=== PATIENT | female | born 1990 | race Caucasian/White ===

== ENCOUNTER → 2018-10-21 13:41 | Outpatient (CLI) | payer SELFPAY ==
[2018-10-21 17:14] LABS: Chlamydia Trachomatis by PCR Negative (Negative); Neisserai gonorrhoeae by PCR Negative (Negative); Probe Check PASS; Sample Adequacy Control PASS; Specimen Processing Control PASS
[2018-10-26 11:31] LABS: HPV Reflexed? NOT INDICATED
--- OUTSIDE RECORDS SUMMARY | 2019-01-25 04:12 | XMS RPT_ITS ---
:1990 Author Organization OHIP Care Team Providers Name Role Phone Donald Ward Attending Unavailable Seals, Donald Attending Unavailable PROBLEMS PROBLEMS DATE TYPE CONDITION / CODE ATTENDING STATUS SOURCE 11/03/2018 Unknown Z34.82 - Encounter Donald Ward Active Bren for supervision of Community other normal Hospital , second Repository trimester / Z34.82(ICD-10) 10/21/2018 Unknown Z11.3 - Encounter SealDonald cai for screening for Community infections with a Hospital predominantly Repository sexual mode of transmission / Z11.3(ICD-10) 10/21/2018 Unknown Z12.4 - Encounter Donald Ward for screening for Community malignant neoplasm Hospital of cervix / Repository Z12.4(ICD-10) PROCEDURES PROCEDURES No Procedure Records FoundRESULTS RESULTS URINE DRUG SCREEN Collected: 11/03/2018 Status: F Source: BREN (MIR) 9:26 AM [facility] REPOSITORY Order Comment: List of Drugs Taken or Suspected? UNK TYPE CODE TESTS RESULT OUT OF RANGE REFERENCE UNITS LAB L505.0075 TO BE Normal CONFIRMED Result Comment: CONFIRMATORY TESTING FOR ALL POSITIVE URINE DRUG SCREEN RESULTS WILL ONLY BE SENT OUT UPON PHYSICIAN ORDER. VISTA Urine Drug Screen methods provide only preliminary analytical test results. A more specific alternate chemical method must be used in order to obtain a confirmed analytical result. Gas chromatography/mass spectrometery (GC/MS) is the preferred confirmatory method. Clinical consideration and professional judgement should be applied to any drug of abuse test result, particularly when preliminary positive results are used. URINE TCA TESTING MUST BE ORDERED SEPARATELY. USE TEST MNEMONIC: [facility] LAB L505.5005 VISTA UDS PH 7 Normal LAB L505.5015 <1000 ng/mL AMPHETAMINES Normal NEGATIVE LAB L505.5025 < 200 ng/mL BARBITIURATES Normal NEGATIVE LAB L505.5035 < 200 ng/mL BENZODIAZIPINE Normal NEGATIVE LAB L505.5045 < 300 ng/mL COCAINE Normal NEGATIVE LAB L505.5055 < 500 ng/mL ECSTACY Normal NEGATIVE LAB L505.5065 < 300 ng/mL METHADONE Normal NEGATIVE LAB L505.5075 < 300 ng/mL OPIATES Normal NEGATIVE LAB L505.5085 < 25 ng/mL PCP Normal NEGATIVE LAB L505.5095 < 50 ng/mL THC Normal NEGATIVE Performed By: #### L505.5000 #### [facility] [address] [place], [address] CBC W/DIFF, AUTOMATED Collected: 11/03/2018 Status: F Source: SILVER STAR 9:26 AM [facility] REPOSITORY TYPE CODE TESTS RESULT OUT OF RANGE REFERENCE UNITS LAB L100.1000 4.4-11.0 K/mm3 Normal WBC 9.0 LAB L100.1200 4.2-5.4 M/mm3 Low RBC 3.91 LAB L100.1300 12.0-15.0 g/dl Normal HGB 12.0 LAB L100.1400 37-47 % Low HCT 35.4 LAB L100.1500 81-99 fL Normal MCV 90.5 LAB L100.1600 27.0-32.0 pg Normal MCH 30.7 LAB L100.1700 32-36 g/gl Normal MCHC 33.9 LAB L100.1810 11.6-14.6 % Normal RDW CV 13.8 LAB L100.1820 35.1-43.9 fl High RDW SD 45.4 LAB L100.1900 150-450 K/mm3 Normal PLT 158 LAB L100.2000 6.2-12.0 fl Normal MPV 9.6 LAB L100.2100 47-70 % High NEUT% 79.4 LAB L100.2200 19-41 % Low LY% 12.6 LAB L100.2300 0-10 % Normal MONO% 6.8 LAB L100.2400 0-5 % Normal EO% 0.8 LAB L100.2500 0-1 % Normal BASO% 0.2 LAB L100.2550 0.0-0.9 % Normal IM GRAN % 0.200 Result Comment: IG% - Immature Granulocytes (promyelocytes, myelocytes and metamyelocytes) > 1% indicates that a LEFT SHIFT is Present. LAB L100.2620 2.0-7.7 X10 3/uL Normal Absolute Neut 7.1 LAB L100.2720 0.83-4.51 X10 3/ul Normal Absolute Lymph 1.13 Performed By: #### L100.0100 #### [facility] [address] [place], [place], [address] URINALYSIS, ROUTINE Collected: 11/03/2018 Status: F Source: BREN (DIPSTICK) 9:26 AM [facility] REPOSITORY Order Comment: How was Urine Obtained? Urine, Random TYPE CODE TESTS RESULT OUT OF RANGE REFERENCE UNITS LAB L400.3000 Yellow COLOR Normal Yellow LAB L400.3050 Clear Normal CLARITY Clear LAB L400.3200 Normal mg/dl Normal GLUCOSE, UR Normal LAB L400.3300 Negative mg/dL Normal BILIRUBIN URINE Negative LAB L400.3400 Negative mg/dl Normal KETONE UR Negative LAB L400.3465 1.002-1.030 Normal SP.GR. DIPSTX 1.015 LAB L400.3550 5.0 - 8.0 pH UR Normal 8.0 LAB L400.3600 Negative mg/dl PROT Normal DIPSTX Negative LAB L400.3700 Normal mg/dl Normal UROBILI Normal LAB L400.3750 Negative Normal NITRITE UR Negative LAB L400.3780 Negative /ul Normal OCCULT BLOOD-UR Negative LAB L400.3800 Negative /ul High LEUK 25 ESTERASE Performed By: #### L400.2010 #### [facility] [address] [place], [place], [address] THYROID STIM HORMONE Collected: 11/03/2018 Status: F Source: BREN (TSH) 9:26 AM [facility] REPOSITORY TYPE CODE TESTS RESULT OUT OF RANGE REFERENCE UNITS LAB L501.9520 0.358-3.74 uIU/mL Normal TSH 2.60 Performed By: #### L501.9520 #### [facility] [address] [place], [address] RUBELLA IGG Collected: 11/03/2018 Status: F Source: BREN 9:26 AM [facility] REPOSITORY TYPE CODE TESTS RESULT OUT OF RANGE REFERENCE UNITS LAB L509.4000 IU/mL Normal Rubella IgG 34.2 Result Comment: Antibody results Interpretation of Immune Status < 5 IU/ml Presumed Non-immune 5 - < 10 IU/ml Equivocal > or = 10 IU/ml Presumed Immune Performed By: #### L509.4000, L3890.6005 #### [facility] [address] [place], [place], [id number] HIV - WCH Collected: 11/03/2018 Status: F Source: SILVER STAR 9:26 AM [facility] REPOSITORY TYPE CODE TESTS RESULT OUT OF RANGE REFERENCE UNITS LAB L3890.6005 Nonreactive Normal HIV - WCH Non-Reactive Performed By: #### L509.3999, L3890.6005 #### [facility] [address] [place], [place], [id number] T AND S-NO Collected: 11/03/2018 Status: F Source: BREN CHARGE W/PNP 9:26 AM [facility] REPOSITORY Order Comment: Reason for Type AND Screen/Red Cells: Surgery? N TYPE CODE TESTS RESULT OUT OF RANGE REFERENCE UNITS LAB B10.0800 A Normal BLOOD POSITIVE TYPE GEL LAB B100.4050 Normal Ab SCREEN NEGATIVE GEL Performed By: #### B100.7550 #### [facility] [address] [place], [place], [id number] RPR Collected: 11/03/2018 Status: F Source: SILVER STAR 9:26 AM [facility] REPOSITORY TYPE CODE TESTS RESULT OUT OF REFERENCE UNITS RANGE LAB L700.5100 NONREACTIVE Normal RPR NONREACTIVE Performed By: #### L700.5100 #### [facility] [address] [place], [place], [address] HEPATITIS B SURFACE Collected: 11/03/2018 Status: F Source: BREN AG 9:26 AM [facility] REPOSITORY TYPE CODE TESTS RESULT OUT OF RANGE REFERENCE UNITS LAB L3100.0400 Negative Normal HB Negative SURF AG Result Comment: Performed at: [address] [id number] Hair Salon Manager: Maximiliano Ware PhD, Phone: [phone] Performed By: #### L3100.0390, L3100.0625 #### [facility] (refer to report for specific site) refer to report for address and phone number HEPATITIS C ANTIBODIES Collected: 11/03/2018 Status: F Source: SILVER STAR 9:26 AM [facility] REPOSITORY TYPE CODE TESTS RESULT OUT OF RANGE REFERENCE UNITS LAB L3100.0650 0.0-0.9 s/co ratio Normal HEP C AB <0.1 Result Comment: Negative: < 0.8 Indeterminate: 0.8 - 0.9 Positive: > 0.9 The CDC recommends that a positive HCV antibody result be followed up with a HCV Nucleic Acid Amplification test ([id number]). Performed By: #### L3100.0390, L3100.0625 #### [facility] (refer to report for specific site) refer to report for address and phone number CT/NG WCH BY PCR Collected: 10/21/2018 Status: F Source: SILVER STAR 10:30 AM [facility] REPOSITORY TYPE CODE TESTS RESULT OUT OF RANGE REFERENCE UNITS LAB L8200.2100 Negative Normal Chlam Negative Trac PCR LAB L8200.2200 Negative Normal NG by Negative PCR Performed By: #### L8200.1999 #### [facility] [address] [place], [address] PAP I-G W/RFX HRHPV Collected: 10/21/2018 Status: F Source: SILVER STAR 10:30 AM [facility] REPOSITORY Order Comment: CYTOLOGY INFORMATION: - CLINICAL INFORMATION: - DATE LMP/MENOPAUSE: 07/04/18 LMP - COLLECTION VIAL: Thin Prep Vial - COMMODITY TRADER SOURCE: CERVICAL/ENDOCERVICAL - COLLECTION TECHNIQUE: BRUSH/SPATULA Specimen Comment: [id number] Specimen Comment: Source.............Cervix;Endocervix Specimen Comment: LMP / Prev Treat...GHA=[id number] Specimen Comment: Other.............. Specimen Comment: No. of containers..01 ThinPrep Vial TYPE CODE TESTS RESULT OUT OF RANGE REFERENCE UNITS LAB L7400.0800 . Normal DIAGN Comment Result Comment: NEGATIVE FOR INTRAEPITHELIAL LESION AND MALIGNANCY. LAB L7400.0900 . Normal ADEQ Comment Result Comment: Satisfactory for evaluation. Endocervical and/or squamous metaplastic cells (endocervical component) are present. LAB L7400.1400 . Normal PERFORM Comment Result Comment: Natasha Pascual Horticulturalist LAB L7400.2575 . Normal TEST METHOD Comment Result Comment: This liquid based ThinPrep(R) pap test was screened with the use of an image guided system. LAB L7400.2600 . Normal . COMM LAB L7400.2700 . Normal PAPSMR Comment Result Comment: The Pap smear is a screening test designed to aid in the detection of premalignant and malignant conditions of the uterine cervix. It is not a diagnostic procedure and should not be used as the sole means of detecting cervical cancer. Both false-positive and false-negative reports do occur. LAB L7400.2800 . Normal HPV RFLX Comment Result Comment: The HPV DNA reflex criteria were not met with this specimen result therefore, no HPV testing was performed. Performed at: - [facility] [id number] Hair Salon Manager: Lorna James MD, Phone: [phone] Performed By: #### L7400.0350 #### [facility] (refer to report for specific site) refer to report for address and phone number ALLERGIES ALLERGIES No Allergies Records FoundENCOUNTERS ENCOUNTERS ADMIT/DISCHARGE ACCOUNT ADMITTING ENCOUNTER LOCATION SOURCE NUMBER CLASS 11/03/2018 [id number] Ambulatory [facility] ing:WOBLAB Repository 10/21/2018 [id number] Ambulatory [address] ing:LABSPEC Repository PAYERS PAYERS ENCOUNTER GUARANTOR PAYER SUBSCRIBER SOURCE 11/03/2018 [facility]BA Primary NOT GIVENUNK Bren [id number] Insurance:SELF PAY [address], Number: Effective Repository [place] [phone]: Date:2018-11-03 () 10/21/2018 LUBA Primary NOT GIVENUNK Bren [id number] Insurance:SELF PAY [address], Number: Effective Repository [place] [phone]: Date:2018-10-21 ()
== END ==
PROVIDERS: Visit Provider Obstetrics & Gynecology
DX: Z11.3 Encounter for screening for infections with a predominantly sexual mode of transmission (principal); Z12.4 Encounter for screening for malignant neoplasm of cervix
CPT/HCPCS: 87491; 87591; 88175; G0145

== ENCOUNTER → 2018-11-03 09:20 | Outpatient (CLI) | payer SELFPAY ==
[2018-11-03 11:49] LABS: Absolute Lymphocyte Count 1.13 X10^3/ul (0.83-4.51); Absolute Neutrophil Count 7.1 X10^3/uL (2.0-7.7); Basophil# 0.02 X10^3/uL; Basophil% 0.2 % (0-1); Eosinophil# 0.07 X10^3/uL; Eosinophils% 0.8 % (0-5); Hematocrit 35.4 % (37-47); Lymphocyte # 1.13 X10^3/ul (4.0); Lymphocyte % 12.6 % (19-41); Mean Corp Hgb Conc 33.9 g/gl (32-36); Mean Corpuscular Hgb 30.7 pg (27.0-32.0); Mean Corpuscular Volume 90.5 fL (81-99); Mean Platelet Vol. 9.6 fl (6.2-12.0); Monocyte# 0.61 X10^3/uL; Monocyte% 6.8 % (0-10); Neutrophil # 7.14 X10^3/uL (2.7-7.7); Neutrophil % 79.4 % (47-70); Platelet Count 158 K/mm3 (150-450); RBC Distribution Width CV 13.8 % (11.6-14.6); RBC Distribution Width SD 45.4 fl (35.1-43.9); Red Blood Count 3.91 M/mm3 (4.2-5.4)
[2018-11-03 11:53] LABS: Color, Urine Yellow (Yellow); Glucose, Dipstick Normal (Normal); Ketone-Dipstick Negative (Negative); Leukocyte Esterase-Dipstick 25 /ul (Negative); Nitrite-Dipstick Negative (Negative); Occult Blood-Urine Negative /ul (Negative); Protein-Dipstick Negative (Negative); Specific Gravity, Urine 1.015 (1.002-1.030); Urine Bilirubin Dipstick Negative (Negative); Urine Clarity Clear (Clear); Urine Urobilinogen Normal (Normal)
[2018-11-03 11:54] LABS: POSITIVE COUNT NO; POSITIVE DIFFERENTIAL NO; POSITIVE MORPHOLOGY NO
[2018-11-03 12:29] LABS: Amphetamine Urine VISTA NEGATIVE (<1000 ng/mL); Barbiturate Urine VISTA NEGATIVE (< 200 ng/mL); Benzodiazepine Urine VISTA NEGATIVE (< 200 ng/mL); Cocaine Urine VISTA NEGATIVE (< 300 ng/mL); Ecstacy Urine VISTA NEGATIVE (< 500 ng/mL); Methadone Urine VISTA NEGATIVE (< 300 ng/mL); PCP Urine VISTA NEGATIVE (< 25 ng/mL); THC Urine VISTA NEGATIVE (< 50 ng/mL); Vista UDS pH Range 7
[2018-11-03 12:53] LABS: HIV - WCH Non-Reactive (Nonreactive); Rubella IgG 34.2 IU/mL
[2018-11-04 03:23] LABS: Prenatal RPR NONREACTIVE (NONREACTIVE)
[2018-11-04 11:04] LABS: HEPATITIS B SURFACE AG Negative (Negative); Hep C Antibodies <0.1 s/co ratio (0.0-0.9)
== END ==
PROVIDERS: Visit Provider Obstetrics & Gynecology
DX: Z34.82 Encounter for supervision of other normal pregnancy, second trimester (principal)
CPT/HCPCS: 36415; 80307; 81002; 84443; 85025; 86703; 86762; 86803; 87340

== ENCOUNTER → 2019-01-19 15:46 | Outpatient (CLI) | payer SELFPAY ==
[2019-01-19 17:59] LABS: Hemoglobin 10.3 g/dl (12.0-15.0); Mean Corp Hgb Conc 33.2 g/gl (32-36); Mean Corpuscular Hgb 30.7 pg (27.0-32.0); Mean Corpuscular Volume 92.5 fL (81-99); Mean Platelet Vol. 9.1 fl (6.2-12.0); Platelet Count 176 K/mm3 (150-450); RBC Distribution Width CV 13.6 % (11.6-14.6); Red Blood Count 3.35 M/mm3 (4.2-5.4); White Blood Count 10.6 K/mm3 (4.4-11.0)
[2019-01-19 18:02] LABS: Glucose Challenge Gest 1H 50g 106 mg/dL (70-140); Scan Indicated on CBC? Y/N NO
== END ==
PROVIDERS: Visit Provider Obstetrics & Gynecology
DX: Z34.83 Encounter for supervision of other normal pregnancy, third trimester (principal)
CPT/HCPCS: 36415; 82950; 85027

== ENCOUNTER → 2019-03-15 17:26 | Outpatient (CLI) | payer SELFPAY | PROVIDERS: Referring Provider Obstetrics & Gynecology; Visit Provider Obstetrics & Gynecology | DX: Z34.83 Encounter for supervision of other normal pregnancy, third trimester (principal); Z36.85 Encounter for antenatal screening for Streptococcus B | CPT/HCPCS: 87081 ==

== ENCOUNTER 2019-04-11 19:05 | Inpatient (IN) | payer SELFPAY ==
[2019-04-11] MEDS: Lactated Ringers 1,000 ML 50 ML IV (19:20)
[2019-04-11] MEDS: Oxytocin 30 units/NS 500 ml 30 UNITS/500 ML IV.SOLN 334 UNITS IV (19:32)
[2019-04-11 19:35] LABS: Absolute Neutrophil Count 6.5 X10^3/uL (2.0-7.7); Basophil# 0.01 X10^3/uL; Basophil% 0.1 % (0-1); Eosinophil# 0.02 X10^3/uL; Eosinophils% 0.2 % (0-5); Hematocrit 35.3 % (37-47); Lymphocyte % 21.3 % (19-41); Mean Corpuscular Hgb 30.6 pg (27.0-32.0); Mean Corpuscular Volume 90.1 fL (81-99); Mean Platelet Vol. 9.5 fl (6.2-12.0); Monocyte# 0.82 X10^3/uL; Monocyte% 8.7 % (0-10); Neutrophil # 6.52 X10^3/uL (2.7-7.7); Neutrophil % 69.5 % (47-70); Platelet Count 153 K/mm3 (150-450); RBC Distribution Width CV 15.2 % (11.6-14.6); RBC Distribution Width SD 49.7 fl (35.1-43.9); Red Blood Count 3.92 M/mm3 (4.2-5.4); White Blood Count 9.4 K/mm3 (4.4-11.0)
[2019-04-11 19:39] LABS: POSITIVE COUNT NO; POSITIVE DIFFERENTIAL NO; POSITIVE MORPHOLOGY NO
--- NOTE | 2019-04-11 19:40 | PCM.DCVAG ---
Discharge Diet: No Restrictions Discharge Activity: May Shower, May Take a Tub Bath Return to work on:: 05/22/19 May resume sexual activity in: 4-6 weeks Additional Activity Instructions:: Nothing in the vagina for 4-6 weeks. You may return to work/school in 6 weeks. Additional Instructions: If you experience any of the following, contact your healthcare provider. Bleeding that soaks a pad every hour for 2 hours Fever 100.4 or higher Unrelieved abdominal pain Problems urinating (including inability to urinate or burning while urinating). Visual changes Severe headache Flu-like symptoms Pain or redness in one of both of your breasts Pain, warmth, tenderness or swelling in your legs, especially the calf area Frequent nausea and vomiting Symptoms of depression or anxiety If you experience any of the following, call 911 or go to the nearest Emergency Room. Chest pain Problems breathing Seizure activity Partial or complete paralysis of a body part, slurred speech, weakness or drooping of the face, or a sudden inability to walk or hold your balance Please Follow Up With: Donald Ward MD - [phone] When: Call to make an appointment with your doctor in 6 weeks. Primary Care Physician: Nikki Barrow MD [Primary Care Provider] - Test Results: Test results from this visit will be discussed in further detail at your follow-up appointment, if applicable. Proposed Discharge Date: 04/13/19
--- NOTE | 2019-04-11 19:41 | DCINST_ITS ---
Discharge Diet: No Restrictions Discharge Activity: May Shower, May Take a Tub Bath Return to work on:: 05/22/19 May resume sexual activity in: 4-6 weeks Additional Activity Instructions:: Nothing in the vagina for 4-6 weeks. You may return to work/school in 6 weeks. Additional Instructions: If you experience any of the following, contact your healthcare provider. * Bleeding that soaks a pad every hour for 2 hours * Fever 100.4 or higher * Unrelieved abdominal pain * Problems urinating (including inability to urinate or burning while urinating). * Visual changes * Severe headache * Flu-like symptoms * Pain or redness in one of both of your breasts * Pain, warmth, tenderness or swelling in your legs, especially the calf area * Frequent nausea and vomiting * Symptoms of depression or anxiety If you experience any of the following, call 911 or go to the nearest Emergency Room. * Chest pain * Problems breathing * Seizure activity * Partial or complete paralysis of a body part, slurred speech, weakness or drooping of the face, or a sudden inability to walk or hold your balance Please Follow Up With: Donald Ward MD - [phone] When: Call to make an appointment with your doctor in 6 weeks. Primary Care Physician: Nikki Barrow MD [Primary Care Provider] - Test Results: Test results from this visit will be discussed in further detail at your follow- up appointment, if applicable. Proposed Discharge Date: 04/13/19
--- NOTE | 2019-04-11 19:41 | PCM.OPRPT ---
Vaginal Delivery Maternal Presentation: Active Labor 40 wk EGA UCs all afternoon. presents at 9 cm BBOW Amniotic Membrane Rupture Type: Artificial Amniotic Fluid Description: Clear Final ROSA MARIA: 04/11/19 Gestational age: 40 Weeks and 0 Days Date of Procedure: 04/11/19 Pre-Operative Diagnosis: 40 wk labor Post-Operative Diagnosis: same Surgery/ Procedure Performed: Spontaneous Vaginal Delivery Type of Anesthesia: None Description of Procedure: of a hines viable female over intact perineum to lacerations. Head delivered OA. Nuchal cord x one reduced after delivery of VTX. Shoulders delivered easily. OP and nares bulb suctioned and to maternal abdomen with spont cry. Dried and stimulated on maternal abdomen. Cord clamped x two and cut. wt pending. Ap 8/9. PP exam: Avulsion laceration of R anterior labia noted, hemostatic. no other lacerations, no repair No anesthesia for delivery Placenta delivered by spont expulsion. 3V cord, normal appearing and intact with trailing membranes. EBL 300 cc Pt and tolerated delivery well. To recovery, stable condition. Ray home counts correct times two. Presentation: Vertex, ATUL Placental Delivery Description: Spontaneous, Expressed Placenta Disposition: [facility] Cord Vessel Description: 3 Vessels Nuchal Cord Compression: Without compression Cord Entanglement: Around neck x 1, loose Estimated Blood Loss: 300 Infant A gender: Female (1 minute): 8 (5 minute): 9 Episiotomy Description: None Laceration: Perineal Extension/lac - avulsion laceration of R anterior labia, hemostatic and not repaired. Medications given after delivery: IV Pitocin Complications: None
--- NOTE | 2019-04-11 19:48 | PCM.HPOB.BLA ---
History and Physical Date of Admission: 04/11/19 OB HISTORY AND PHYSICAL EXAMINATION History of this : 28 yo female Ab0 with EDC 04/10/2019 by Ultrasound, presents to Labor and Delivery after contractions all afternoon 40 1/7 wk EGA. care remarkable for 1.) First cousin with Down Syndrome, and has an aunt with cause unknown developmental delays, 2.) MSAFP and CF testing declined 3.) Prior vac/forceps delivery w/ a 4th degree Pertinent Past Medical History: None. Allergies: No Known Allergies Medications: During - Vitamin 27 mg iron-0.8 mg tablet; ferrous gluconate 324 mg (37.5 mg iron) tablet Review of Systems: Painful UCs. PHYSICAL EXAMINATION General Appearence: 28 yo female in no acute distress Vital Signs: AF, VSS Heart: RRR without rubs or gallops Lungs: CTA x 2 Breasts: deferred Abdomen: gravid Pelvis: Cervix: 9 cm with BBOW. AROM clear. Presentation: cephalic Station: Fetus Size: AGA Movement: present Heart: present Impression /Plan: Intrauterine . 40 1/7 wk GBS neg. Advanced cervical dilation after laboring at home this afternoon. AROM with immediate urge to push. See delivery note See Progress Notes for Changes: Moris Corrales. 04/11/19 1950
[2019-04-11] MEDS: Oxytocin 30 units/NS 500 ml 30 UNITS/500 ML IV.SOLN 167 UNITS IV (20:02)
[2019-04-11 20:07] VITALS: BMI 27.1
[2019-04-11] MEDS: 0.9% Saline Lock 10 ML Syringe IV (21:01)
[2019-04-12 01:05] VITALS: BP 112/58; PULSE 76; RESP 18; TEMP 37.3
[2019-04-12] MEDS: Ibuprofen 600 MG Tablet PO ×3 (01:10→21:00)
[2019-04-12 04:40] VITALS: BP 96/61; PULSE 70; RESP 18; TEMP 36.9
[2019-04-12] MEDS: Acetaminophen 500 MG Tablet 1000 MG PO (06:00)
[2019-04-12 06:16] LABS: Hematocrit 31.4 % (37-47); Hemoglobin 10.5 g/dl (12.0-15.0); Mean Corp Hgb Conc 33.4 g/gl (32-36); Mean Corpuscular Hgb 30.3 pg (27.0-32.0); Mean Corpuscular Volume 90.8 fL (81-99); Mean Platelet Vol. 9.2 fl (6.2-12.0); Platelet Count 127 K/mm3 (150-450); RBC Distribution Width CV 15.1 % (11.6-14.6); RBC Distribution Width SD 50.1 fl (35.1-43.9); Red Blood Count 3.46 M/mm3 (4.2-5.4); White Blood Count 13.5 K/mm3 (4.4-11.0)
[2019-04-12 06:17] LABS: Scan Indicated on CBC? Y/N NO
--- NOTE | 2019-04-12 07:39 | PCM.PN.OB ---
Subjective: PPD#1 States feeling a lot better than she did with her first. this baby came quickly and was about a pound smaller. Objective: Standing and rocking at bedside with baby skin to skin beneath her gown. - Physical Exam General: Alert, Oriented x3, Cooperative, No apparent distress HEENT: Atraumatic Neck: Supple Neurological: Cranial nerves II-XII grossly intact Psych/Mental Status: Normal Affect Vital Signs Temp Pulse Resp BP 98.5 F 70 18 96/61 04/12/19 04:40 04/12/19 04:40 04/12/19 04:40 04/12/19 04:40 Weight: 71.668 kg Body Mass Index (BMI) 27.1 Laboratory Tests Past 24 Hrs 04/11/19 04/11/19 04/12/19 19:20 19:20 05:50 WBC 9.4 13.5 H RBC 3.92 L 3.46 L Hgb 12.0 10.5 L Hct 35.3 L 31.4 L MCV 90.1 90.8 MCH 30.6 30.3 MCHC 34.0 33.4 RDW 15.2 H 15.1 H RDW Differential 49.7 H 50.1 H Plt Count 153 127 L MPV 9.5 9.2 Immature Gran % (Auto) 0.200 Neut % (Auto) 69.5 Lymph % (Auto) 21.3 Addison % (Auto) 8.7 Eos % (Auto) 0.2 Baso % (Auto) 0.1 Absolute Neuts (auto) 6.5 Absolute Lymphs (auto) 2.00 Total Counted Not Reportable Blood Type A POSITIVE Antibody Screen NEGATIVE Medical Necessity - Tobacco Use Smoking Status: Never smoker Assessment/Plan PPD#1 Stable pp. continue routine care.
[2019-04-12 08:00] VITALS: BP 93/60; PULSE 88; RESP 16; TEMP 36.9; O2SAT 95
[2019-04-12 12:17] VITALS: BP 108/71; PULSE 77; TEMP 36.9; O2SAT 94
[2019-04-12 15:50] VITALS: BP 93/57; PULSE 73; TEMP 36.4; O2SAT 96
[2019-04-12 20:47] VITALS: BP 100/62; PULSE 70; RESP 16; TEMP 36.9
[2019-04-13 02:19] VITALS: BP 111/62; PULSE 88; RESP 18; TEMP 37.1
--- NOTE | 2019-04-13 04:38 | PCM.DC.SUM ---
Discharge Date and Diagnosis Date of Admission: 04/11/19 Date of Discharge: 04/13/19 - Primary Discharge Diagnosis S/P Hospital Course and Treatment Operations: None Procedures: - - Summary of Care Provided: The patient is a 28 year old F [] Admitted in advanced labor. Pushed to deliver a live without complication. Post course unremarkable. Discharged home on PP day#2. - Physical Exam Vital Signs Temp Pulse Resp BP Pulse Ox 98.8 F 88 18 111/62 96 04/13/19 02:19 04/13/19 02:19 04/13/19 02:19 04/13/19 02:04/12/19 15:50 Oxygen Delivery Method Room Air Weight: 158 lb Body Mass Index (BMI) 27.1 Laboratory Tests Past 24 Hrs 04/12/19 05:50 WBC 13.5 H RBC 3.46 L Hgb 10.5 L Hct 31.4 L MCV 90.8 MCH 30.3 MCHC 33.4 RDW 15.1 H RDW Differential 50.1 H Plt Count 127 L MPV 9.2 Discharge Diet: No Restrictions Discharge Activity: May Shower, May Take a Tub Bath Return to work on:: 05/22/19 May resume sexual activity in: 4-6 weeks Additional Activity Instructions:: Nothing in the vagina for 4-6 weeks. You may return to work/school in 6 weeks. Call your doctor if you observe: Fever of 101 or Higher, Inability to urinate, Inability to have a bowel movement, Using more than one pad per hour, Shortness of breath, Chest pain, Calf discomfort, Uncontrolled pain Cleanse incision/area with: Soap & Water Home Medications: Medications to take at Discharge Vits [Prenatabs FA] 1 tablet PO DAILY 04/11/19 Primary Care Physician: Nikki Barrow MD [Primary Care Provider] - Please Follow Up With: Donald Ward MD - [phone] When: 6 weeks Disposition: Home Minutes spent on discharge:: 15 Patient Condition:: Good Medical Necessity - Tobacco Use Smoking Status: Never smoker Meaningful Use Info Meaningful Use Diagnoses (Choose all that apply): None applicable
[2019-04-13] MEDS: Ibuprofen 600 MG Tablet PO (05:02)
--- NOTE | 2019-04-13 08:03 | PCM.PROGNOTE ---
Subjective: Doing well. Some cramping with breast feeding. Bleeding light Objective: Afeb VSS - Physical Exam General: Alert, Oriented x3, Cooperative, No apparent distress Abdomen: Soft, Non Tender, Non-Distended Extremities: No edema Skin: No rashes Neurological: Neuro grossly intact Psych/Mental Status: Normal Affect Comment: Lochia appropriate Vital Signs Temp Pulse Resp BP Pulse Ox 98.8 F 88 18 111/62 96 04/13/19 02:04/13/19 02:04/13/19 02:04/13/19 02:04/12/19 15:50 Oxygen Delivery Method Room Air Weight: 158 lb Body Mass Index (BMI) 27.1 Medical Necessity - Tobacco Use Smoking Status: Never smoker Assessment/Plan Doing well on PP day#2. Cleared for discharge home today. Home going instructions and warnings given.
[2019-04-13] MEDS: Senna/Docusate Sodium 1 Tablet PO (09:18)
[2019-04-13 10:50] VITALS: BP 96/54; PULSE 60; RESP 16; TEMP 36.8
[2019-04-13 10:55] VITALS: BP 96/54; PULSE 60; RESP 16; TEMP 36.8
== END 2019-04-13 10:45 | disposition home or self-care (01) | DRG 807 ==
PROVIDERS: Admitting Provider Obstetrics & Gynecology; Referring Provider Obstetrics & Gynecology; Visit Provider Obstetrics & Gynecology
DX: O69.81X0 Labor and delivery complicated by cord around neck, without compression, not applicable or unspecified (principal); O70.0 First degree perineal laceration during delivery; Z3A.40 40 weeks gestation of pregnancy; Z37.0 Single live birth
CPT/HCPCS: 59025; 59050; 85025; 85027; 86850; 86900; 99218; J7120; A4216; G0378

== ENCOUNTER 2022-06-19 23:48 | Emergency (ER) | payer OTHER, SELFPAY ==
[2022-06-19 23:49] VITALS: BP 114/81; PULSE 102; RESP 16; TEMP 31.1; O2SAT 99; BMI 20.2
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
[2022-06-20 01:27] VITALS: BP 110/70
== END 2022-06-20 01:37 | disposition home or self-care (01) ==
PROVIDERS: Emergency Provider Emergency Medicine; PCP Family Medicine; Visit Provider Emergency Medicine
DX: O9A.211 Injury, poisoning and certain other consequences of external causes complicating pregnancy, first trimester (principal); S30.0XXA Contusion of lower back and pelvis, initial encounter; V53.6XXA Passenger in pick-up truck or van injured in collision with car, pick-up truck or van in traffic accident, initial encounter; Y93.89 Activity, other specified; Z3A.13 13 weeks gestation of pregnancy; O20.0 Threatened abortion
CPT/HCPCS: 84702; 86900; 86901; 99285; A4216